=== PATIENT | female | born 1980 | race Caucasian/White ===

== ENCOUNTER 2018-06-12 10:30 | Inpatient (IN) ==
[2018-06-12] MEDS ORDERED: Metoclopramide 10 MG/2 ML VIAL IVP ONE (10:52)
[2018-06-12] MEDS ORDERED: CeFAZolin Premix DUPLEX 2,000 MG/50 ML BAG IVPB ONE (10:52)
[2018-06-12] MEDS ORDERED: Oxytocin 20 units/ LR 1000 mL 20 UNIT/1,000 ML BAG IVC ONE (10:52)
[2018-06-12] MEDS ORDERED: Ringers Solution, Lactated 1,000 ML IVC ONE (10:52)
[2018-06-12] MEDS ORDERED: Famotidine 20 MG/2 ML VIAL IVP ONE (10:52)
[2018-06-12] MEDS ORDERED: Oxytocin 20 units/ LR 1000 mL 20 UNIT/1,000 ML BAG IVC SCH ×2 (11:00→18:45)
[2018-06-12] MEDS ORDERED: Ringers Solution, Lactated 1,000 ML IVC SCH (11:00)
[2018-06-12] MEDS ORDERED: *HR* Morphine Sulfate/PF 10 MG/10 ML AMPUL ONE (11:40)
[2018-06-12] MEDS ORDERED: *HR* Oxytocin 10 UNIT/ML VIAL IM ONE ×2 (11:40→13:46)
[2018-06-12] MEDS ORDERED: *HR* FentaNYL (PF) 100 MCG/2 ML VIAL ONE (11:40)
[2018-06-12 11:42] LABS: Basophils % 0.2 %; Eosinophils % 0.3 %; Hematocrit 41.1 % (35.3-44.9); Hemoglobin 13.6 g/dL (11.5-15.4); Immature Granulocytes % 0.6 % (0-4); Lymphocytes % 14.9 %; Mean Corpuscular HGB Conc 33.1 g/dL (31.6-35.5); Mean Corpuscular Volume 87.6 fL (83.0-100.0); Mean Platelet Volume 9.3 fL (9.4-12.4); Monocytes # 0.7 K/mcL (0.0-1.3); Monocytes % 5.4 %; Neutrophils # 10.5 K/mcL (1.6-8.9); Platelet Count 255 K/mcL (140-400); Red Blood Count 4.69 M/mcL (3.82-4.97); Red Cell Distribution Width 13.2 % (11.5-14.5); Segmented Neutrophils % 78.6 %
[2018-06-12] MEDS ORDERED: *HR* Phenylephrine 10 MG/ML VIAL ONE (11:42)
[2018-06-12 11:45] LABS: Amphetamine Screen,Urine Negative ng/mL (Cutoff=1000); Barbiturate Screen,Urine Negative ng/mL (Cutoff=200); Benzodiazepines Screen,Urine Negative ng/mL (Cutoff=200); Cannabinoid Screen,Urine Negative ng/mL (Cutoff = 50); Cocaine Screen,Urine Negative ng/mL (Cutoff= 300); Opiate Screen,Urine Negative ng/mL (Cutoff=300); Phencyclidine Screen,Urine Negative ng/mL (Cutoff=25)
--- NOTE | 2018-06-12 12:04 | Anesthesia Evaluation PreOp ---
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 Other Medical History: Denies Any Significant HX Anesthesia History: No Prior Anesthetic Complications, Past Anesthesia : Yes (39 weeks, ) Alcohol Use: none Drug use: none - Meds/Allergy Pre-op Review Medications Reviewed: Yes Allergies Reviewed: Yes Beta Blockers on Current Med List: No Anesthesia Results - Labs 06/12/18 11:12 Anesthesia Exam O2 Sat Height 1.7 m Weight 109.8 kg Height: 67 Weight: 109 - HEENT Pupil (Motor): Pupils equal Mallampati: II Teeth: Normal Oral Opening: Greater than 3 - FLAME ANNEALING MACHINE OPERATOR LOC: Oriented FLAME ANNEALING MACHINE OPERATOR Motor: Normal RUE, Normal LUE, Normal RLE, Normal LLE, Normal Face FLAME ANNEALING MACHINE OPERATOR Sensory: Normal: RUE, LUE, RLE, LLE, Face - Cardiac Rhythm: Regular Murmur: None JVD: No Carotid Bruit: No - Pulmonary Breath Sounds: bilateral Clear Respiratory Effort: Symmetrical Anesthesia Assess/Plan ASA Score: 2 Level of consciousness: Cooperative Anesthetic Plan: General (plan B), Spinal (Plan A) Monitoring Plan: Standard Monitors Recovery Plan: PACU
[2018-06-12] MEDS ORDERED: Lidocaine -MPF 1% 5 ML AMPUL ONE (12:52)
--- NOTE | 2018-06-12 13:13 | OB/GYN History & Physical ---
Date of Encounter: 06/12/18 Time of Encounter: 13:09 Assessment and Plan (1) 39 weeks gestation of Current visit: Yes Status: Acute (2) S/P repeat low transverse Current visit: Yes Status: Acute History of Present Illness Chief complaint: section HPI: Ms. Gray is a 38 year old female 012 presents today for scheduled repeat section at 39 weeks and 2 days. She is doing well without complaints. She is having no complaint of any kind. She has no drug allergies. She is currently on vitamins. Chronic medical conditions include hypothyroidism. History of superficial femoral phlebitis.. Surgical history includes a vein stripping in 2 previous sections. She denies issues with her breasts. There is no gynecologic infection or discharge. She is h aving no bleeding. There are no issues with her bowels or bladder. Obstetric history significant for 2 term deliveries via section. Family history is significant for heart disease. Past Med Surg Social Fam HX - Past Medical History Medical history: no medical history Psychiatric history: no psych history - Past Surgical History Surgical History: - Social History Smoking Status: Never smoker Smokeless Tobacco Status: No Alcohol use: none Drug use: none - Family History Father Adopted: No Age: 65 Family Member Ethnicity: Non- Living Status: Still Living Hx Family Cardiac Disorders: Yes (2 heart attacks) Hx Family Respiratory Disorders: No Hx Family Cancer: No Hx Family GI Disorders: No Hx Family Genitourinary Disorders: No Hx Family Endocrine Disorder: No Hx Family Musculoskeletal Disorders: No Hx Family Neuromuscular Disorders: No Hx Family Neurologic Disorders: No Hx Family HEENT Disorders: No Hx Family Autoimmune Disorders: No Hx Family Reproductive Disorders: No Hx Family Psychosocial Disorders: No Hx Family Medical Disorders: No Obstetrical History - Pregnancies : 4 Para: 2 Term: 2 Ab's: 1 Livin Medications and Allergies Vitamin Tablet 1 tab PO DAILY 06/12/18 [History] Allergy/AdvReac Type Severity Reaction Status Date / Time No Known Allergies Allergy Verified 06/12/18 12:20 Review of System OB All systems PM: reviewed and no additional remarkable complaints except as stated Exam - Constitutional Constitutional: well developed, well nourished, no acute distress, average body habitus - HEENT HEENT: EOMI, PERRL - Neck Neck exam: full ROM - Lungs Respiratory exam: CTAB - Cardiovascular Cardiovascular exam: RRR - Abdomen Abdomen: Present: bowel sounds normal, gravid, non tender - Extremities Extremities exam: full ROM, normal inspection - Vagina Vagina: Present: normal moisture - Cervix Dilation: 0 Effacement: 0 Station: -3 - Uterus Uterus exam: Present: normal size Results Result Diagrams: 06/12/18 11:12 Abnormal lab results WBC 13.4 K/mcL (4.3-11.1) H 06/12/18 11:12 MPV 9.3 fL (9.4-12.4) L 06/12/18 11:12 Neutrophils # 10.5 K/mcL (1.6-8.9) H 06/12/18 11:12 All other labs normal.
[2018-06-12] MEDS ORDERED: Ondansetron 4 MG/2 ML VIAL IVP ONE (13:31)
[2018-06-12] MEDS ORDERED: *HR* HYDROmorphone (PF) 1 MG/ML SYRINGE IVP PRN (13:31)
[2018-06-12] MEDS ORDERED: Acetaminophen IV 1,000 MG/100 ML INFUS..BTL IVPB ONE (13:31)
[2018-06-12] MEDS ORDERED: *HR* Nalbuphine 10 MG/ML AMPUL IV PRN (13:33)
--- NOTE | 2018-06-12 14:05 | OB/GYN Procedure Note ---
Section - Date of procedure: 06/12/18 Preop diagnosis: desires repeat Post-op diagnosis: same Procedure: repeat low transverse Surgeon: Reinaldo Silver Blood Loss: 400 Was there an medicine assistant present: Yes Telegraphic Instrument Supervisor: Catherine Lugo Finishing Range Operator: Balbir Arvizu Anesthesia Type: Spinal section complications: none Disposition: PACU Specimens: Placenta - Infant (s) Infant A Infant Delivery Date: 06/12/18 Delivery Time: 13:37 Presentation: vertex Position: OA Gender: Female Viability: Viable Pounds: 7 Ounces: 5 Gram Weight: 3.33 kg at 1 minute: 8 at 5 minutes: 10 Shoulder Dystocia: not encountered Specimens collected: cord blood Placenta: partial extraction Cord: nuchal cord
--- NOTE | 2018-06-12 14:10 | Event Note ---
Date of Encounter: 06/12/18 Time of Encounter: 11:37 Patient was taken to the operating room with an IV in place. She was then given spinal anesthesia. Once adequate analgesia was achieved patient was prepped and draped in usual sterile fashion. We then proceeded with a Pfannenstiel incision through patient's previous scar. It was carried sharply through the subtenons fatty tissue until the fascial layers reached. The fascia was nicked in the midline incised bilaterally with Solares scissors. It was then dissected vertically for adequate exposure. Rectus abdominis muscles creatures and separate the midline. The peritoneum sharply entered. A bladder blade was placed at the inferior margin incision. The bladder flap was then developed. Bladder blade was placed over the bladder flap and a low transverse incision was then made in the lower uterine segment. Fluid was noted be clear. The was then delivered using vacuum assistance for 7 seconds. The infant's head was then delivered easily. The vacuum was removed. There was a nuchal cord 2 which was easily reduced. The was then delivered without difficulty. Infant cried immediately upon delivery. The cord was clamped cut. The was in past nurse in attendance. Cord blood was obtained. Placenta was then delivered via uterine lavage and massage. Uterus was then delivered again uterine lavage was performed. The uterus contracted down nicely. The incision was then closed with 0 Vicryl suture in a running locking fashion. There was excellent hemostasis. The uterus was then replaced the pelvic cavity. The pelvic cavity was rinsed thoroughly with sterile water 2. C no bleeding the procedure was terminated. Sponge needle and instrument count was correct 2. The fascia was closed the Vicryl suture in a running nonlocking fashion. The suprafascial region was rinsed thoroughly with sterile water 2 all bleeders cauterized. The skin was closed veronica. Patient tolerated the procedure well. Estimated blood loss is 400 mL finding is a female weight was 7 lbs. 5 oz. with Apgars of 8 at 1 minute and 10 at 5.
[2018-06-12] MEDS: ceFAZolin 2,000 MG in Water for inj. (sterile) 20 ML 10 ML IVP SCH (17:17)
[2018-06-12] MEDS ORDERED: Sennosides 8.6 MG TABLET PO PRN (18:44)
[2018-06-12] MEDS ORDERED: *HR* OxyCODONE/APAP 5/325 TABLET PO PRN (18:44)
[2018-06-12] MEDS ORDERED: Metoclopramide 10 MG/2 ML VIAL IVP PRN (18:44)
[2018-06-12] MEDS ORDERED: Ondansetron 4 MG/2 ML VIAL IVP PRN (18:44)
[2018-06-12] MEDS ORDERED: Simethicone 80 MG TAB.CHEW PO PRN (18:44)
[2018-06-12] MEDS: Ibuprofen 600 MG TABLET PO PRN (19:08)
[2018-06-13] MEDS: ceFAZolin 2,000 MG in Water for inj. (sterile) 20 ML 10 ML IVP SCH ×2 (01:05→08:22)
[2018-06-13] MEDS: Ibuprofen 600 MG TABLET PO PRN ×4 (01:32→20:54)
[2018-06-13 06:52] LABS: Basophils % 0.3 %; Eosinophils # 0.1 K/mcL (0.0-0.6); Eosinophils % 0.4 %; Hematocrit 35.3 % (35.3-44.9); Immature Granulocytes % 0.4 % (0-4); Lymphocytes % 15.6 %; Mean Corpuscular Hemoglobin 29.7 pg (28.0-33.3); Mean Corpuscular Volume 87.4 fL (83.0-100.0); Mean Platelet Volume 9.2 fL (9.4-12.4); Monocytes # 0.8 K/mcL (0.0-1.3); Monocytes % 6.5 %; Neutrophils # 9.6 K/mcL (1.6-8.9); Platelet Count 218 K/mcL (140-400); Red Blood Count 4.04 M/mcL (3.82-4.97); Red Cell Distribution Width 13.2 % (11.5-14.5); Segmented Neutrophils % 76.8 %
--- NOTE | 2018-06-13 07:35 | Event Note ---
Date of Encounter: 06/12/18 Time of Encounter: 16:00 Event note/addendum. During section a vacuum was utilized to deliver 's head. The kiwi vacuum was placed without difficulty. The 's head was delivered with thevacuum being utilized. It was used for a total of 7 seconds. The vacuum was removed after the 's head was delivered.. Infant's head was inspected. Baby was delivered without any difficulty. There was a cord of the neck 2 easily reduced. The rest of the infant was then delivered without difficulty.
[2018-06-13] MEDS: Prenatal Vit/FA 1 EACH TABLET PO SCH (08:21)
--- NOTE | 2018-06-13 09:47 | OB/GYN Progress Note ---
Date of Encounter: 06/13/18 Time of Encounter: 09:45 - Assessment and Plan (1) S/P repeat low transverse Current Visit: Yes Status: Acute Continue routine / post op orders Anticipate discharge home tomorrow. Subjective - Subjective Principal diagnosis: Repeat Interval history: S/P Delivery Day 1 Pain well controlled Lochia light and without clots VSS Tolerating regular diet; passing flatus Voiding without difficulty Breast Feeding Anticipate discharge home tomorrow POC per consult with Dr Garcia Patient reports: appetite normal, voiding normally, pain well controlled, ambulating normally Freeman: doing well, nursing well Objective - Vital Signs Latest vital signs: Vital Signs Temp Pulse Resp BP Pulse Ox 06/13/18 09:32 16 06/13/18 08:20 98.3 F 74 16 105/69 06/13/18 03:30 98.0 F 76 16 104/63 96 06/12/18 23:35 97.8 F 76 16 102/60 96 06/12/18 19:30 97.5 F L 79 16 113/74 98 06/12/18 18:30 97.9 F 75 16 111/65 98 06/12/18 17:31 97.2 F L 78 16 109/70 06/12/18 17:00 98.1 F 76 16 111/68 98 06/12/18 16:30 97.8 F 80 16 103/68 99 Intake and Output 06/12/18 06/13/18 06/13/18 23:59 07:59 15:59 Intake Total 600 / 600 Output Total 950 / 950 2650 / 2650 Balance -940 / -940 -2640 / -2640 600 / 600 Intake: IV Fluids Ancef 2,000 MG In Water for inj . (sterile) 10 ML @ 200 mls/hr IVP Q8HR [facility] Rx#:[id number] Oral 600 / 600 Output: Catheter 950 / 950 2650 / 2650 Other: Weight 109 kg 107.864 kg Patient Weight 06/13/18 23:59 Weight 107.864 kg - Exam Lungs: bilateral: normal Chest: Normal S1, Normal S2 Extremities: Present: normal Abdomen: Present: normal appearance, gravid Incision: Present: normal, dry, intact (Dressing C/D/I) Uterus: Present: normal, firm Fundal Height: 0 (@U) - Labs Labs: Laboratory Results - last 24 hr 06/12/18 06/12/18 06/13/18 11:12 11:12 06:20 WBC 13.4 H 12.5 H RBC 4.69 4.04 Hgb 13.6 12.0 D Hct 41.1 35.3 MCV 87.6 87.4 MCH 29.0 29.7 MCHC 33.1 34.0 RDW 13.2 13.2 Plt Count 255 218 MPV 9.3 L 9.2 L Immature Gran % 0.6 0.4 Seg Neutrophils % 78.6 76.8 Lymphocytes % 14.9 15.6 Monocytes % 5.4 6.5 Eosinophils % 0.3 0.4 Basophils % 0.2 0.3 Neutrophils # 10.5 H 9.6 H Lymphocytes # 2.0 2.0 Monocytes # 0.7 0.8 Eosinophils # 0.0 0.1 Basophils # 0.0 0.0 Urine Opiates Screen Negative Ur Barbiturates Screen Negative Ur Phencyclidine Scrn Negative Ur Amphetamines Screen Negative U Benzodiazepines Scrn Negative Urine Cocaine Screen Negative U Marijuana (THC) Screen Negative Ur Drug Screen Interp See Below
[2018-06-13 23:11] VITALS: BP 106/70
[2018-06-14] MEDS: Ibuprofen 600 MG TABLET PO PRN ×2 (04:12→08:50)
--- NOTE | 2018-06-14 08:43 | Discharge Summary ---
Date of Encounter: 06/14/18 Time of Encounter: 08:40 - Discharge Diagnosis (1) Breast feeding status of mother Priority: Secondary Status: Acute Comments: Continue support prn (2) S/P repeat low transverse Priority: Primary Status: Acute Comments: Continue routine postop/ care discharge home today follow up with Dr. Stanley in 7 days for staple removal - Discharge Medications Prescriptions: OxyCODONE/APAP 5/325 [Percocet 5/325 MG] 1 each PO Q4HR PRN 5 Days #30 tablet PRN Reason: Moderate pain 4-6 Ibuprofen [Motrin] 600 mg PO Q6HR PRN #60 tablet PRN Reason: Cramping Docusate [Colace] 100 mg PO BID #30 capsule Home Medications: Vitamin Tablet 1 tab PO DAILY 06/12/18 [History] Docusate [Colace] 100 mg PO BID #30 capsule 06/14/18 [Rx] Ibuprofen [Motrin] 600 mg PO Q6HR PRN #60 tablet 06/14/18 [Rx] OxyCODONE/APAP 5/325 [Percocet 5/325 MG] 1 each PO Q4HR PRN 5 Days #30 tablet 06/14/18 [Rx] Allergies/Adverse Reactions: Allergy/AdvReac Type Severity Reaction Status Date / Time No Known Allergies Allergy Verified 06/12/18 12:20 Data Procedures and tests throughout hospitalization: Laboratory Tests 06/12/18 06/12/18 06/13/18 11:12 11:12 06:20 WBC 13.4 H 12.5 H RBC 4.69 4.04 Hgb 13.6 12.0 D Hct 41.1 35.3 MCV 87.6 87.4 MCH 29.0 29.7 MCHC 33.1 34.0 RDW 13.2 13.2 Plt Count 255 218 MPV 9.3 L 9.2 L Immature Gran % 0.6 0.4 Seg Neutrophils % 78.6 76.8 Lymphocytes % 14.9 15.6 Monocytes % 5.4 6.5 Eosinophils % 0.3 0.4 Basophils % 0.2 0.3 Neutrophils # 10.5 H 9.6 H Lymphocytes # 2.0 2.0 Monocytes # 0.7 0.8 Eosinophils # 0.0 0.1 Basophils # 0.0 0.0 Urine Opiates Screen Negative Ur Barbiturates Screen Negative Ur Phencyclidine Scrn Negative Ur Amphetamines Screen Negative U Benzodiazepines Scrn Negative Urine Cocaine Screen Negative U Marijuana (THC) Screen Negative Ur Drug Screen Interp See Below Date of admission: 06/12/18 10:35 Primary care physician: Ned Bronson MD Discharging clinician: Catherine Hogue Anticipated date of discharge: 06/14/18 - Patient Status Disposition: Home, Self-Care Condition: Good Functional capacity at discharge: independent ambulation - Discharge Instructions Follow Up With: Ned Bronson MD [Primary Care Provider] - Reinaldo Stanley MD [Partnered Physician] - - Diet and Activity Activity: increase activity as tolerated Diet: regular diet Hospital Course Procedures: OARRs report reviewed prior to discharge by KENY Forte Reason for admission: section Delivery: section Episiotomy: none Laceration: none Other procedures: none complications: none Discharge diagnosis: IUP at term delivered baby: female (breast feeding) Time Attestation: Total time spent providing and/or coordinating discharge services: Time Spent: Less than 30 minutes - VTE Documentation of Mechanical Device: Intermittent pneumatic compression device Exam - Constitutional Vitals: Temp Pulse Resp BP Pulse Ox 97.3 F L 83 14 106/70 96 06/13/18 20:55 06/13/18 20:55 06/13/18 20:55 06/13/18 20:55 06/13/18 20:55 General appearance IM: A&O X 3, pleasant, answers questions appropriately - Respiratory Respiratory exam: Present: CTAB - Cardiovascular Cardiovascular exam IM: Present: RRR, +S1, +S2 - GI/Abdominal GI/Abdominal exam IM: normal bowel sounds Incision: normal, dry, intact, other (Dressing removed, veronica intact) - Uterine Tone: Firm Uterus Position: 2 Fingers Below Umbilicus, Midline - Extremities Exam Extremities exam IM: Present: full ROM, normal capillary refill, normal inspection - Neurological Exam Neurological exam: alert, oriented X3, reflexes normal
[2018-06-14] MEDS: Prenatal Vit/FA 1 EACH TABLET PO SCH (08:51)
== END 2018-06-14 12:00 | disposition home or self-care (01) | DRG 788 ==
LOC: 1NENULAB 10:35 → 1NENUOBS 16:29
PROVIDERS: ADMIT Obstetrics & Gynecology; ATTEND Obstetrics & Gynecology

== ENCOUNTER 2019-07-16 06:00 | Inpatient (IN) ==
[2019-07-16] MEDS ORDERED: Oxytocin 20 units/ LR 1000 mL 20 UNIT/1,000 ML BAG IVC ONE (06:32)
[2019-07-16] MEDS ORDERED: Famotidine 20 MG/2 ML VIAL IVP ONE (06:32)
[2019-07-16] MEDS ORDERED: Metoclopramide 10 MG/2 ML VIAL IVP ONE (06:32)
[2019-07-16] MEDS ORDERED: Naloxone 0.4 MG/ML INJ IVP PRN ×3 (06:32→12:18)
[2019-07-16] MEDS ORDERED: CeFAZolin Syr 3,000MG/30 ML 3,000 MG/30 ML SYRINGE IVPB ONE (06:32)
[2019-07-16] MEDS ORDERED: Ringers Solution, Lactated 1,000 ML IVC ONE (06:32)
[2019-07-16] MEDS ORDERED: Oxytocin 20 units/ LR 1000 mL 20 UNIT/1,000 ML BAG IVC SCH ×2 (06:45→12:18)
[2019-07-16] MEDS ORDERED: Ringers Solution, Lactated 1,000 ML IVC SCH (06:45)
[2019-07-16 06:52] LABS: Basophils % 0.3 %; Eosinophils # 0.1 K/mcL (0.0-0.6); Eosinophils % 0.6 %; Hematocrit 39.2 % (35.3-44.9); Hemoglobin 13.8 g/dL (11.5-15.4); Immature Granulocytes % 0.8 % (0-4); Lymphocytes # 2.1 K/mcL (0.6-4.6); Lymphocytes % 17.6 %; Mean Corpuscular HGB Conc 35.2 g/dL (31.6-35.5); Mean Corpuscular Hemoglobin 30.9 pg (28.0-33.3); Mean Corpuscular Volume 87.7 fL (83.0-100.0); Mean Platelet Volume 8.8 fL (9.4-12.4); Monocytes # 0.7 K/mcL (0.0-1.3); Monocytes % 5.9 %; Neutrophils # 8.8 K/mcL (1.6-8.9); Platelet Count 279 K/mcL (140-400); Red Blood Count 4.47 M/mcL (3.82-4.97); Red Cell Distribution Width 13.2 % (11.5-14.5); Segmented Neutrophils % 74.8 %; White Blood Count 11.8 K/mcL (4.3-11.1)
[2019-07-16] MEDS ORDERED: *HR* Phenylephrine 10 MG/ML VIAL ONE (07:27)
[2019-07-16] MEDS ORDERED: Ringers Solution, Lactated 1,000 ML ONE ×2 (07:27→08:48)
[2019-07-16] MEDS ORDERED: *HR* Oxytocin 10 UNIT/ML VIAL IM ONE ×2 (07:27→08:48)
[2019-07-16] MEDS ORDERED: *HR* Morphine Sulfate/PF 10 MG/10 ML AMPUL ONE (07:28)
[2019-07-16] MEDS ORDERED: *HR* FentaNYL (PF) 100 MCG/2 ML VIAL ONE (07:28)
[2019-07-16] MEDS ORDERED: CeFAZolin Syr 2,000MG/20 ML 2,000 MG/20 ML SYRINGE IVPB ONE (07:58)
[2019-07-16 09:06] LABS: Amphetamine Screen,Urine Negative ng/mL (Cutoff=1000); Barbiturate Screen,Urine Negative ng/mL (Cutoff=200); Benzodiazepines Screen,Urine Negative ng/mL (Cutoff=200); Cannabinoid Screen,Urine Negative ng/mL (Cutoff = 50); Cocaine Screen,Urine Negative ng/mL (Cutoff= 300); Opiate Screen,Urine Negative ng/mL (Cutoff=300); Phencyclidine Screen,Urine Negative ng/mL (Cutoff=25)
[2019-07-16] MEDS ORDERED: Ondansetron 4 MG/2 ML VIAL IVP PRN ×3 (09:15→12:18)
[2019-07-16] MEDS ORDERED: *HR* HYDROmorphone (PF) 1 MG/ML SYRINGE IVP PRN ×2 (09:15→12:18)
[2019-07-16] MEDS ORDERED: *HR* OxyCODONE/APAP 5/325 TABLET PO PRN ×3 (09:15→12:18)
[2019-07-16] MEDS ORDERED: Morphine Sulfate 2 MG/ML SYRINGE IVP PRN ×2 (09:15→12:18)
[2019-07-16] MEDS ORDERED: Ibuprofen 400 MG TABLET PO PRN ×2 (09:15→12:18)
[2019-07-16] MEDS ORDERED: Metoclopramide 10 MG/2 ML VIAL IVP PRN (12:18)
[2019-07-16] MEDS ORDERED: Sennosides 8.6 MG TABLET PO PRN (12:18)
[2019-07-16] MEDS: Ibuprofen 600 MG TABLET PO PRN ×2 (13:14→19:54)
[2019-07-16] MEDS ORDERED: ceFAZolin 2,000 MG in Water for inj. (sterile) 10 ML IVP SCH (16:00)
[2019-07-16] MEDS ORDERED: FLU Vac QV 19-20 (6Month+)/PF 0.5 ML SYRINGE IM ONE (17:33)
[2019-07-16] MEDS: metroNIDAZOLE 500 MG TABLET PO SCH (21:06)
[2019-07-16] MEDS: cephALEXin 500 MG CAPSULE PO SCH (21:06)
[2019-07-17] MEDS: Ibuprofen 600 MG TABLET PO PRN ×3 (07:03→18:01)
[2019-07-17 07:34] LABS: Basophils % 0.2 %; Eosinophils # 0.1 K/mcL (0.0-0.6); Eosinophils % 1.1 %; Hematocrit 36.2 % (35.3-44.9); Immature Granulocytes % 0.7 % (0-4); Lymphocytes # 1.5 K/mcL (0.6-4.6); Lymphocytes % 14.5 %; Mean Corpuscular HGB Conc 33.7 g/dL (31.6-35.5); Mean Corpuscular Hemoglobin 29.9 pg (28.0-33.3); Mean Corpuscular Volume 88.7 fL (83.0-100.0); Mean Platelet Volume 8.9 fL (9.4-12.4); Monocytes # 0.6 K/mcL (0.0-1.3); Monocytes % 5.9 %; Neutrophils # 8.1 K/mcL (1.6-8.9); Platelet Count 238 K/mcL (140-400); Red Blood Count 4.08 M/mcL (3.82-4.97); Red Cell Distribution Width 13.4 % (11.5-14.5); Segmented Neutrophils % 77.6 %; White Blood Count 10.5 K/mcL (4.3-11.1)
[2019-07-17 08:24] LABS: Hemoglobin 12.2 g/dL (11.5-15.4)
[2019-07-17] MEDS: Prenatal Vit/FA 1 EACH TABLET PO SCH (08:42)
[2019-07-17] MEDS: metroNIDAZOLE 500 MG TABLET PO SCH ×2 (08:42→21:26)
[2019-07-17] MEDS: cephALEXin 500 MG CAPSULE PO SCH ×2 (08:42→21:26)
[2019-07-17] MEDS: Simethicone 80 MG TAB.CHEW PO PRN (18:02)
[2019-07-18] MEDS: Ibuprofen 600 MG TABLET PO PRN ×2 (00:18→08:07)
[2019-07-18] MEDS: Simethicone 80 MG TAB.CHEW PO PRN (04:42)
[2019-07-18 08:03] VITALS: BP 127/83
[2019-07-18] MEDS: metroNIDAZOLE 500 MG TABLET PO SCH (08:07)
[2019-07-18] MEDS: cephALEXin 500 MG CAPSULE PO SCH (08:07)
[2019-07-18] MEDS: Prenatal Vit/FA 1 EACH TABLET PO SCH (08:07)
== END 2019-07-18 11:10 | disposition home or self-care (01) | DRG 784 ==
LOC: 1NENULAB 06:04 → 1NENUOBS 11:41
PROVIDERS: ADMIT Obstetrics & Gynecology; ATTEND Obstetrics & Gynecology